=== PATIENT | female | born 1970 | race Two or more races ===

== ENCOUNTER 2024-02-11 13:06 | Emergency (ER) | payer OTHER ==
[~2024-02-11] VITALS: Ht 165.1 cm; Wt 63.5 kg
[2024-02-11] MEDS ORDERED: FAMOTIDINE/PF 20 MG/2 ML VIAL IV ONE (15:30)
[2024-02-11 16:16] LABS: HEMATOCRIT 39.6 % (36.0-45.00); HEMOGLOBIN 13.1 g/dL (12.0-15.00); MEAN CELL VOLUME 84.5 fL (80.00-100.00); MEAN CORPUSCULAR HGB CONC 33.2 g/dl (32.0-36.0); PLATELET COUNT 237 K/uL (150-450); RED BLOOD COUNT 4.68 M/uL (4.00-6.00); RED CELL DISTRIBUTION WIDTH 14.3 % (11.5-14.5)
[2024-02-11 16:36] LABS: ALBUMIN 4.1 gm/dL (3.4-5.0); BILIRUBIN TOTAL 0.81 mg/dL (0.3-1.2); CALCIUM 9.2 mg/dL (8.5-10.1); CREATININE SERUM 0.77 mg/dL (0.55-1.02); GFR 78.12; GLOBULINA 4.2 G/DL (2.4-3.5); POTASSIUM 4.13 mEq/L (3.5-5.1); TOTAL PROTEIN 8.3 gm/dL (6.4-8.2)
[2024-02-11 16:45] LABS: PH,URINE 6.5 (5.0-8.0); URINE APPEARANCE Clear; URINE BILIRRUBIN Negative (NEGATIVE); URINE BLOOD Large; URINE COLOR Yellow; URINE GLUCOSE Negative (NEGATIVE); URINE KETONE Negative (NEGATIVE); URINE LEUKOCYTE Large; URINE NITRATE Negative; URINE PROTEIN Trace (NEGATIVE); URINE UROBILINOGEN 0.2 E.U./dl
[2024-02-11 16:46] LABS: URINE BACTERIA 569.4 uL (0.0-1933); URINE RBC 21.5 uL (0.0-20.8); URINE WBC 534.4 uL (0.0-23.2)
[2024-02-11 16:48] LABS: URINE CAST 0.15 uL (0.0-1.40); URINE EPITHELIAL CELLS 0.7 uL (0.0-38.8)
[2024-02-11] MEDS ORDERED: MACRODANTIN100 M1 PO (17:02)
[2024-02-11] MEDS ORDERED: PEPCID AC20 MG PO (17:02)
== END 2024-02-11 17:16 | disposition home or self-care (01) ==
LOC: ER 13:08
PROVIDERS: Nurse Practitioner Family
DX: N39.0 Urinary tract infection, site not specified (principal); R30.0 Dysuria; R35.0 Frequency of micturition; Z91.011 Allergy to milk products; Z91.040 Latex allergy status